=== PATIENT | male | born 1945 | race Caucasian/White ===

== ENCOUNTER 2017-01-11 22:50 | Inpatient (IN) | payer OTHER ==
[~2017-01-11] VITALS: Ht 182.9 cm; Wt 79.5 kg
[2017-01-11] MEDS ORDERED: ONDANSETRON 4 MG INJ IV STA (23:06)
[2017-01-11] MEDS ORDERED: MECLIZINE 12.5 MG TAB PO ONE (23:30)
[2017-01-11 23:43] LABS: ADD SCAN DIFF NO
[2017-01-11 23:47] LABS: BASOPHILS % 0.2 % (0.0-2.0); HEMATOCRIT 37.1 % (42.0-52.0); HEMOGLOBIN 12.5 g/dl (14.0-18.0); LYMPHOCYTES # 1.1 10^3/ul (0.8-2.9); LYMPHOCYTES % 13.5 % (15.0-51.0); MEAN CORPUSCULAR HEMOGLOBIN 30.5 pg (29.0-33.0); MEAN CORPUSCULAR HGB CONC 33.7 g/dl (32.0-37.0); MEAN CORPUSCULAR VOLUME 90.5 fl (82.0-101.0); MEAN PLATELET VOLUME 9.6 fl (7.4-10.4); MONOCYTE # 0.5 10^3/ul (0.3-0.9); MONOCYTES % 6.1 % (0.0-11.0); NEUTROPHIL # 6.5 10^3/ul (1.6-7.5); PLATELET COUNT 228 10^3/UL (140-415); RED CELL DISTRIBUTION WIDTH 13.1 % (11.5-14.5); WHITE BLOOD COUNT 8.1 10^3/ul (4.8-10.8)
[2017-01-11 23:53] LABS: POTASSIUM 3.4 mmol/L (3.5-5.1)
[2017-01-11 23:54] LABS: INR 0.94; PROTIME 12.6 Sec (12.2-14.2)
[2017-01-11 23:55] LABS: CREATININE 1.49 mg/dl (0.61-1.24); PARTIAL THROMBOPLASTIN TIME 26.6 Sec (25.0-35.0)
[2017-01-11 23:56] LABS: CALCIUM 9.5 mg/dl (8.4-10.2)
[2017-01-12] VITALS (37 sets, daily range): BP systolic 138–181; BP diastolic 76–137; PULSE 55–99; RESP 8–23; Ht 182.9 cm; Wt 79.5 kg
--- NOTE | 2017-01-12 00:04 | RADRPT ---
PROCEDURE: Portable chest x-ray. CLINICAL INDICATION: Dizziness, headache. TECHNIQUE: Portable AP view of the chest. COMPARISON: None. FINDINGS: There is elevation of the right hemidiaphragm. No pulmonary edema or conolidation is identified. T he cardiac silhouette is magnified. No pleural effusion is seen. There is no pneumothorax. IMPRESSION: 1. No evidence of acute cardiopulmonary disease. RPTAT: HTAR .Osei Stroud MD, MD Date Time Electronically viewed and signed by .Osei Stroud MD, MD on 01/12/2017 00:04 .R/
[2017-01-12 00:08] LABS: TROPONIN-I 0.044 ng/ml (0.00-0.12)
--- NOTE | 2017-01-12 00:28 | RADRPT ---
PROCEDURE: CT Head without. CLINICAL INDICATION: Dizziness. TECHNIQUE: The study was performed utilizing a multi-slice, multidetector CT scanner. Direct spira l 1 mm axial sections were obtained through the head without the use of intravenous contrast materia l. 1 or more of the following dose reduction techniques were utilized: Automated exposure control, adjustment of the mA and/or kV according to patient's size, iterative reconstruction technique. Co macario and sagittal as well as maximal intensity projection reformations were obtained. The images we re reviewed on a PACS workstation. RADIATION DOSE: CTDIvol: 45.0 mGyDLP: 720.2 mGy-cm COMPARISON: No prior studies are available for comparison. FINDINGS: There is no extra-axial fluid collection, mass lesion or midline shift. There is a subtle hyperdens ity in the left centrum semiovale white matter measuring 6 x 4 mm (axial series image 21). There is severe prominence of the lateral and third ventricles, which is slightly proportion to the mild pro minence of the cerebral sulci. There is mild anterior bowing of the chiasmatic recess. There is no significant funneling of the cerebral aqueduct. There is moderate to severe prominence of the temp oral horns. There is moderate patchy and confluent periventricular and subcortical white matter hyp odensity. There is moderate arteriosclerotic calcification of the bilateral vertebral and parasella r internal carotid arteries. The barreto-white matter differentiation is preserved. The basal cistern s are patent. The midline structures are intact. The orbits, calvarium and extracranial soft tissu es are normal in appearance. The visualized paranasal sinuses, mastoid air cells and middle ear cavities are normally aerated. IMPRESSION: 1. Severe prominence of the lateral and third ventricles which is out of proportion to the mild per ipheral cerebral volume loss. There is superimposed moderate patchy and confluent periventricular w helga matter hypodensity. These findings are nonspecific, however concern is raised for possible nor mal pressure hydrocephalus versus nonobstructive hydrocephalous. Alternatively, this may be related to central worse than peripheral cerebral volume loss with associated moderate chronic microangiopa thic changes. 2. Focal 6 x 4 mm hyperdensity in the left periventricular/centrum semiovale white matter, which is nonspecific. This may be related to early focus of hemorrhage with other etiologies including vasc ular malformation not excluded. Short interval follow-up is recommended. 3. extra-axial fluid collection or mass lesion. The above findings were discussed with Patient's physician Dipak Nunez by telephone on 2016 12:25:17 AM. RPTAT: HGAS .John Anderson MD, MD Date Time Electronically viewed and signed by .John Anderson MD, MD on 01/12/2017 00:27 .S/
[2017-01-12] MEDS ORDERED: LORAZEPAM 1 MG TAB PO ONE (02:00)
--- NOTE | 2017-01-12 03:33 | HP ---
Date/Time of Note Date/Time of Note DATE: 01/12/17 TIME: 03:33 Assessment/Plan VTE Prophylaxis VTE Prophylaxis Intervention: anti-embolic stocking VTE Contraindication Reason: bleeding (Bleeding Risk. Possible Subarachnoid Bleed.) Assessment/Plan Assessment/Plan 1) Abnormal CT Brain - probable subarachnoid bleed, possible Normal Pressure Hydrocephalus vs Nonobstructing Hydrocephalus vs ? - Admit to ICU - NPO - No Anticoagulation - CONSULT: Neurosurgery: Dr. Gallegos already notified by ER Physician HPI/ROS Admit Date/Time Admit Date/Time 01/12/17 0443 Hx of Present Illness CC: Headache and Dizziness HPI: Patient was brought to the ER via EMS for severe headache and dizziness. By the time I see him, he is comfortable and sleeping after being medicated. Per ER Physician, Neurosurgeon, Dr. Gallegos has already been notified and will consult on patient tomorrow. ROS General: Admits: Denies: Fever, Chills Eyes: Admits: Denies: Blurry Vision, Double Vision HENT: Admits: Denies: Ear Pain/Pressure, Runny/Stuffy Nose, Sore Throat Cardiovascular: Admits: Denies: Chest Pain, Palpitations, Leg Swelling Pulmonary: Admits: Denies: Cough, Shortness of Breath Gastrointestinal: Admits: Denies: Abdominal Pain, Nausea, Vomiting Urogenital: Admits: Denies: Burning with Urination, Urinary Frequency Musculoskeletal: Admits: Denies: Joint Pain, Joint Swelling, Muscle Pain Neurological: Admits: Headache (almost completely gone), Dizziness (resolved) Denies: Numbness, Tingling, Shooting Pains Integumentary: Admits: Denies: Rash, Itch PMH/Family/Social Social History Smoking Status: Never smoker Exam/Review of Systems Vital Signs Vitals Vital Signs Date Time Temp Pulse Resp B/P Pulse Ox O2 Delivery O2 Flow Rate FiO2 01/12/17 00:36 73 22 118/81 99 01/11/17 23:05 98.0 Exam Exam General: Sleepin comfortable, easily aroused, in no acute distress. Eyes: Sclera White, EOMI HENT: Normocephalic/Atraumatic, External Ears/Nose Normal, Moist Mucus Membranes Neck: Supple, Trachea Midline Cardiovascular: Normal Rate, Normal Rhythm, Normal S1 and S2, No Murmur, No Extra Sounds Pulmonary: Clear to Auscultation Bilaterally, Normal Respiratory Effort, No Rales, Rhonchi or Wheezes Gastrointestinal: Normoactive Bowel Sounds, Soft, Non-Tender/Non-Distended, No Hepatosplenomegaly Appreciated, No Pulsatile Masses Urogenital: Deferred Musculoskeletal: Normal Muscle Bulk and Tone Neurological: CN II - XII Grossly Intact, Non-Focal, Speech Normal Integumentary: Normal Moisture and Temperature, Good Turgor, No Jaundice, No Rash Lymphatic: No Cervical Lymphadenopathy Psychiatric: Appropriate Mood and Affect, Good Eye Contact Labs Result Diagram: 01/11/17232401/11/17 232 Procedures Procedures RADIOLOGY: PROCEDURE: CT Head without. CLINICAL INDICATION: Dizziness. TECHNIQUE: The study was performed utilizing a multi-slice, multidetector CT scanner. Direct spiral 1 mm axial sections were obtained through the head without the use of intravenous contrast material. 1 or more of the following dose reduction techniques were utilized: Automated exposure control, adjustment of the mA and/or kV according to patient's size, iterative reconstruction technique. Coronal and sagittal as well as maximal intensity projection reformations were obtained. The images were reviewed on a PACS workstation. RADIATION DOSE: CTDIvol: 45.0 mGy DLP: 720.2 mGy-cm COMPARISON: No prior studies are available for comparison. FINDINGS: There is no extra-axial fluid collection, mass lesion or midline shift. There is a subtle hyperdensity in the left centrum semiovale white matter measuring 6 x 4 mm (axial series image 21). There is severe prominence of the lateral and third ventricles, which is slightly proportion to the mild prominence of the cerebral sulci. There is mild anterior bowing of the chiasmatic recess. There is no significant funneling of the cerebral aqueduct. There is moderate to severe prominence of the temporal horns. There is moderate patchy and confluent periventricular and subcortical white matter hypodensity. There is moderate arteriosclerotic calcification of the bilateral vertebral and parasellar internal carotid arteries. The barreto-white matter differentiation is preserved. The basal cisterns are patent. The midline structures are intact. The orbits, calvarium and extracranial soft tissues are normal in appearance. The visualized paranasal sinuses, mastoid air cells and middle ear cavities are normally aerated. IMPRESSION: 1. Severe prominence of the lateral and third ventricles which is out of proportion to the mild peripheral cerebral volume loss. There is superimposed moderate patchy and confluent periventricular white matter hypodensity. These findings are nonspecific, however concern is raised for possible normal pressure hydrocephalus versus nonobstructive hydrocephalous. Alternatively, this may be related to central worse than peripheral cerebral volume loss with associated moderate chronic microangiopathic changes. 2. Focal 6 x 4 mm hyperdensity in the left periventricular/centrum semiovale white matter, which is nonspecific. This may be related to early focus of hemorrhage with other etiologies including vascular malformation not excluded. Short interval follow-up is recommended. 3. extra-axial fluid collection or mass lesion. PROCEDURE: Portable chest x-ray. CLINICAL INDICATION: Dizziness, headache. TECHNIQUE: Portable AP view of the chest. COMPARISON: None. FINDINGS: There is elevation of the right hemidiaphragm. No pulmonary edema or conolidation is identified. The cardiac silhouette is magnified. No pleural effusion is seen. There is no pneumothorax. IMPRESSION: 1. No evidence of acute cardiopulmonary disease. MICHELLE ROWE DO Jan 12, 2017 03:33 There is elevation of the right hemidiaphragm. No pulmonary edema or conolidation is identified. The cardiac silhouette is magnified. No pleural effusion is seen. There is no pneumothorax.
[2017-01-12] MEDS ORDERED: METOCLOPRAMIDE 10 MG INJ IV PRN (05:00)
[2017-01-12] MEDS ORDERED: ACETAMINOPHEN 650 MG SUPP PR PRN (05:00)
[2017-01-12] MEDS ORDERED: ASPI-664 PO (08:12)
[2017-01-12] MEDS ORDERED: TERA5CAP3 PO (08:13)
[2017-01-12] MEDS ORDERED: DOCU-159 PO (08:13)
[2017-01-12] MEDS ORDERED: CIPR500T4 PO (08:15)
[2017-01-12] MEDS ORDERED: BACL10TA PO (08:16)
[2017-01-12] MEDS ORDERED: DONE10TA7 PO (08:16)
[2017-01-12] MEDS ORDERED: TRAM-40 PO (08:16)
[2017-01-12] MEDS ORDERED: GLIP5TAB13 PO (08:17)
[2017-01-12] MEDS ORDERED: LISI-313 PO (08:17)
[2017-01-12] MEDS ORDERED: TAMS-14 PO (08:17)
[2017-01-12] MEDS ORDERED: OMEP20CA16 PO (08:18)
[2017-01-12] MEDS ORDERED: MULTI PO (08:18)
[2017-01-12] MEDS ORDERED: ATOR20TA38 PO (08:20)
[2017-01-12] MEDS ORDERED: CALC-68 PO (08:20)
[2017-01-12] MEDS ORDERED: LATA2.5D2 BOTH EYES (08:21)
[2017-01-12] MEDS ORDERED: HYDR-906 PO (08:22)
--- NOTE | 2017-01-12 09:07 | CONS ---
Date/Time of Note Date/Time of Note DATE: 01/12/17 TIME: 09:01 Assessment/Plan Assessment/Plan Additional Assessment/Plan 1) small hyperdensity in left parenchyma adjacent to ventricle; 2) dilated ventricles. The significance of either of these findings is difficult to determine without reference imaging. Patient states he has had cranial imaging in the past at [facility]. Although he presented with headache, this is substantially improved and I doubt that there is an acute intracranial process going on. In my opinion he would certainly be stable for repatriation to [facility]. In the interim we can get a MRI of the brain with and without contrast to better define the abnormalities seen on Ct. Consultation Date/Type/Reason Admit Date/Time Date of Consultation: Jan 12, 2017 Type of Consultation: neurological surgery Reason for Consultation intra-cererbal hemorrhage Hx of Present Illness 71 year old with crescendo severe headache (ie not sudden onset) was brought to ED by paramedics for the same. CT shows a small hyperdensity adjacent to the left frontal horn (<5mm), this could be a small focus of calcification or less likely a small hemorrhage. The ventricular system is also dilated. Social History Smoking Status: Never smoker Exam/Review of Systems Vital Signs Vitals Vital Signs Date Time Temp Pulse Resp B/P Pulse Ox O2 Delivery O2 Flow Rate FiO2 01/12/17 07:00 79 15 143/82 100 Nasal Cannula 2.0 01/11/17 23:05 98.0 Exam On neurologic examination the patient is awake and alert moving all extremities 5/5; cranial nerve exam shows equal pupils that are reactive, intact extraocular movements, TML, face=. Results Result Diagram: 01/11/179 01/11/17 232 Results 24 hrs Laboratory Tests Test 01/11/17 23:25 01/12/17 08:02 Activated Partial Thromboplast Time 26.6 Anion Gap 13 Basophils # 0.0 Basophils % 0.2 Blood Urea Nitrogen 21 H Calcium Level 9.5 Carbon Dioxide Level 27 Chloride Level 102 Creatinine 1.49 H Eosinophils # 0.0 Eosinophils % 0.0 Glucose Level 196 Hematocrit 37.1 L Hemoglobin 12.5 L INR International Normalized Ratio 0.94 Lymphocytes # 1.1 Lymphocytes % 13.5 L Mean Corpuscular Hemoglobin 30.5 Mean Corpuscular Hemoglobin Concent 33.7 Mean Corpuscular Volume 90.5 Mean Platelet Volume 9.6 Monocytes # 0.5 Monocytes % 6.1 Neutrophils # 6.5 Neutrophils % 80.0 H Nucleated Red Blood Cells # 0.0 Nucleated Red Blood Cells % 0.0 Platelet Count 228 Potassium Level 3.4 L Prothrombin Time 12.6 Prothrombin Time Ratio 1.0 Red Blood Count 4.10 L Red Cell Distribution Width 13.1 Sodium Level 139 Troponin I 0.044 White Blood Count 8.1 Bedside Glucose 102 Medications Medications Current Medications Metoclopramide HCl (Reglan) 10 mg Q6H PRN IV NAUSEA AND/OR VOMITING; Start at 05:00 Acetaminophen (Tylenol Supp) 650 mg Q4H PRN [place] PAIN LEVEL 1-3 OR FEVER; Start 01/12/17 at 05:00 Famotidine (Pepcid Iv) 20 mg Q12 IV ; Start 01/12/17 at 09:00 HUNG SAN MD Jan 12, 2017 09:07
[2017-01-12] MEDS: FAMOTIDINE 20 MG INJ IV SCH ×2 (10:19→22:27)
[2017-01-12] MEDS ORDERED: DEXTROSE 50% 50 ML SYRINGE IV PRN ×2 (13:30)
[2017-01-12] MEDS ORDERED: GLUCOSE GEL 15 GRAM TUBE PO PRN ×2 (13:30)
[2017-01-12] MEDS ORDERED: GLUCAGON 1 MG INJ IM PRN (13:30)
[2017-01-12] MEDS ORDERED: GLUCOSE GEL 15 GRAM TUBE BUCCAL PRN (13:30)
--- NOTE | 2017-01-12 14:26 | RADRPT ---
PROCEDURE: MR Brain without contrast. CLINICAL INDICATION: Neurologic deficit, subarachnoid hemorrhage TECHNIQUE: An MRI of the brain was performed on a high-resolution MR scanner utilizing the followi ng sequences: Sagittal and axial T1 weighted, axial T2 weighted, axial FLAIR, coronal GRE, and axial diffusion weighted with ADC mapping. Images were reviewed high-resolution PACS workstation. No con trast was administered. COMPARISON: Head CT yesterday FINDINGS: No definite acute parenchymal hemorrhage. No significant mass effect, or midline shift. No evidence of recent infarct. Confluent T2 / FLAIR hyperintense signal change in the cerebral white matter. Chr onic lacunar infarcts of the bilateral basal ganglia, left thalamus and right cerebellum. Foci of GRE susceptibility identified in the right parietal lobe, left frontal periventricular white matter, and left lentiform nucleus. The left frontal periventricular white matter lesion has a rou nded appearance. The ventricles enlarged but not significantly changed in size. There is relative effacement of the sulci at the vertex again seen.. Normal flow voids are visible in the proximal intracranial arteries suggesting their patency. No significant opacification of the paranasal sinuses or mastoids. IMPRESSION: No evidence of recent infarct or definite acute parenchymal hemorrhage. Foci of GRE susceptibility in the right parietal lobe, left frontal periventricular white matter, an d left lentiform nucleus are identified. The differential considerations are led by a sequela of pr ior microhemorrhage. The left periventricular white matter lesion has a rounded appearance and may a lso represent a small cavernous malformation. Similar appearance of enlarged ventricles with relative effacement of sulci at the vertex. This agai n may be due to central greater than peripheral volume loss. Alternatively in the appropriate clinic al setting, normal pressure hydrocephalus may also have this appearance. Severe chronic microvascular disease. Chronic lacunar infarcts of the bilateral basal ganglia, left thalamus and right cerebellum. RPTAT: AA .Grover Calvo MD, MD Date Time Electronically viewed and signed by .Grover Calvo MD, on 01/12/2017 14:26 .T/
[2017-01-12] MEDS ORDERED: morphine 2 MG INJ IV PRN (15:30)
[2017-01-12] MEDS ORDERED: traMADol 50 MG TAB PO PRN (16:30)
[2017-01-12] MEDS: INSULIN ASPART [NOVOLOG] 3 ML PEN SC SCH ×2 (17:35→22:22)
[2017-01-12] MEDS: LISINOPRIL 20 MG TAB PO SCH (17:47)
[2017-01-12] MEDS: METOPROLOL 25 MG TAB PO SCH ×2 (17:47→22:23)
[2017-01-12] MEDS: DONEPEZIL 10 MG TAB PO SCH (18:19)
[2017-01-12] MEDS ORDERED: SOD CHLORIDE 0.9% 1,000 ML IV SCH (18:30)
[2017-01-12] MEDS ORDERED: POTASSIUM CHLORIDE 250 ML IVPB ONE (18:30)
--- NOTE | 2017-01-12 18:45 | RADRPT ---
PROCEDURE: US carotid arteries. CLINICAL INDICATION: Dizziness. Syncope. TECHNIQUE: Multiple sonographic images of the carotid arteries and vertebral arteries were obtaine d utilizing barreto scale, duplex, and color-flow imaging. The images were reviewed on a PACS workstati on. COMPARISON: No prior studies are available for comparison. FINDINGS: Evaluation of the right carotid bifurcation region reveals mild atherosclerotic disease. Evaluation of the left carotid bifurcation region reveals mild atherosclerotic disease. There is antegrade flow within the vertebral arteries bilaterally. RIGHT CAROTID MEASUREMENTS: Common Carotid Sqobez15 (cm/sec) Internal Carotid Artery 34 (cm/sec) External Carotid Artery 52 (cm/sec) Vertebral Artery 39 (cm/sec) Internal Carotid/Common Carotid0.5 LEFT CAROTID MEASUREMENTS: Common Carotid Dzwibu84 (cm/sec) Internal Carotid Artery 50 (cm/sec) External Carotid Artery 54 (cm/sec) Vertebral Artery 35 (cm/sec) Internal Carotid/Common Carotid0.9 Validated velocity measurements with angiographic measurements. Velocity criteria are extrapolated f rom diameter data as defined by the Society of Radiologists in Ultrasound Consensus Conference. Radi ology 2003; 229;340-346. This study does indirectly reference the measurement of the distal ICA pascual meter as the denominator for stenosis measurement. IMPRESSION: 1. Less than 50% stenosis bilaterally in the internal carotid arteries. 2. Normal antegrade flow in the vertebral arteries bilaterally. RPTAT: QQ SRU Consensus Conference Criteria for the Diagnosis of Carotid Artery Stenosis* Degree of Stenosis, % ICA PSV, cm/sec Plaque Estimate, % ICA/CCA PSV Ratio Normal <125 None <2.0 <50 <125 <50 <2.0 50 69 125-230 >50 2.0-4.0 >70 but less than near occlusion >230 >50 <4.0 Near occlusion High, low, or undetectable Visible Variable Total occlusion Undetectable Visible, no detectable lumen Not applicable *Cartoid artery stenosis: barreto-scale and Doppler US diagnosis. Society of Radiologists in Ultrasound Consensus Conference. Radiology 2003; 229: 340-346 .Gianni Avendano MD, Date Time Electronically viewed and signed by .Gianni Avendano MD, on 01/12/2017 18:44 .R/
--- NOTE | 2017-01-12 19:17 | DS ---
DATE OF ADMISSION: 01/12/2017 DATE OF DISCHARGE: 01/12/2017 PRESENTING COMPLAINT: Dizziness. HISTORY OF PRESENTING COMPLAINT: Mr. Benavidez is a 71-year-old male who had presented to the emergency room at about 11:00 on the night of 01/11/2017 with complaints of dizziness. He had a past medical history of: 1. Diabetes, 2. Dyslipidemia. 3. Glaucoma. 4. High blood pressure. 5. Benign prostatic hypertrophy. 6. Chronic back pain. 7. History of stroke in the past with residual right-sided weakness. A CT scan of the brain was done and it showed that he had severe prominence of the lateral and third ventricles, which is out of proportion to the mild peripheral cerebral volume loss with superimpose d moderate patchy and confluent periventricular white matter hypointensity. These findings were tho ught to been no specific, but concern was raised for possible normal pressure hydrocephalus versus a nonobstructive hydrocephalus. There was also a focal 6 x 4 mm hyperdensity in the left periventric ular white matter that was also thought to be nonspecific. It was concerning for a probable early f ocus of hemorrhage, but other etiologies were not excluded. Based on this, the patient was admitted for further intervention and workup. He was reviewed by neurosurgery, Dr. Abhinav Gallegos and Dr. Gallegos determined that the significance of the findings on the CT were difficult to determine witho ut reference imaging. The patient had ____ that he had a cranial imaging in the past at [facility], but his reports that his headache was also improved. Hence, Dr. Gallegos made his recommendations doubt ing that there was any acute intracranial process going on and determined that patient was stable to transfer to [facility] for further interventions while there. Hence, this transfer summary. At this [facility], the patient remains alert and oriented, in no distress, comfortable, ambulant, and communicativ e. TRANSFER PHYSICAL EXAMINATION: VITAL SIGNS: Temperature 98.2, pulse 84, respirations 21, blood pressure 162/104, saturations 99% o n oxygen via nasal cannula at 2 liters a minute. GENERAL: Alert and oriented. HEENT: Head is normocephalic without evidence of trauma. Pupils are equal and reactive. Posterior pharynx is clear of exudate. NECK: Supple. CHEST: Clear. CARDIOVASCULAR: S1 and S2. No murmurs. ABDOMEN: Soft, nontender, nondistended. EXTREMITIES: There is no lower extremity edema. NEUROLOGIC: There are no focal neurologic deficits. LABORATORY DATA: Also reviewed and they were concerning for a potassium of 3.4, a creatinine of 1.4 9. Troponin was negative. But he did have a normocytic normochromic anemia. Coag profile was also unremarkable. Imaging findings have been summarized above. FINAL DIAGNOSES: 1. Acute dizziness/headache, improved. 2. High blood pressure, still with suboptimal control. 3. 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 4. Chronic infarcts of the bilateral basal ganglia, left thalamus, and right cerebellum. 5. 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 6. Diabetes mellitus with good control in-house. 7. Acute renal insufficiency, rule out chronic kidney disease. 8. Hypokalemia. 9. Normocytic, normochromic anemia. DISPOSITION: At this time, the patient has been cleared by neurosurgery for transfer to [facility]. If the patient does not transfer today, we will replete electrolytes, recommend gentle diuresis, also obtain neurology consultation, and commence speech and physical therapy once cleared by neurosurgery . In the interim, we will resume his home blood pressure medication and titrate as indicated, resum e all other home medications and adjust therapy as recommended. Screening labs will include hemoglo bin A1c, TSH. We will also complete an ACS rule out and get a 2D echo as well as carotid Dopplers. This has been discussed with the patient in detail. Questions have been answered. Evaluation time so far has been more than 45 minutes. Dictated By: LUDWIG KHAN MD BA/JENNIFER Conf#: [id number] DID#: [id number] CC: MICHELLE ROWE MD;*End*
[2017-01-12 19:35] LABS: TROPONIN-I 0.032 ng/ml (0.00-0.12)
[2017-01-12 19:45] LABS: CK-MB 1.6 ng/ml (0.0-2.4)
[2017-01-12] MEDS ORDERED: TERAZOSIN 5 MG CAP PO SCH (21:00)
[2017-01-12] MEDS ORDERED: TAMSULOSIN (SR) 0.4 MG CAP PO SCH (21:00)
[2017-01-12] MEDS ORDERED: ATORVASTATIN 20 MG TAB PO SCH (21:00)
[2017-01-12] MEDS ORDERED: LATANOPROST 0.005% 2.5 ML OPH BOTH EYES SCH (21:00)
[2017-01-12] MEDS: CALCIUM/VITAMIN D (500/200) TAB PO SCH (22:23)
[2017-01-13] VITALS (28 sets, daily range): BP systolic 105–199; BP diastolic 68–141; PULSE 54–100; RESP 10–27
[2017-01-13 01:34] LABS: TROPONIN-I 0.03 ng/ml (0.00-0.12)
[2017-01-13 01:44] LABS: CK-MB 1.84 ng/ml (0.0-2.4)
[2017-01-13] MEDS ORDERED: ACCU-CHEK XX SCH (02:00)
[2017-01-13] MEDS ORDERED: LORAZEPAM 1 MG TAB PO ONE (03:00)
[2017-01-13 05:08] LABS: CREATININE 1.31 mg/dl (0.61-1.24)
[2017-01-13 05:09] LABS: CHOL/HDL RATIO 3.2 RATIO; IRON 37 ug/dl (35-150)
[2017-01-13 05:18] LABS: TOTAL IRON BINDING CAPACITY 238 ug/dl (241-421)
[2017-01-13 06:07] LABS: THYROID STIMULATING HORMONE 0.724 MIU/L (0.465-4.680)
[2017-01-13] MEDS: INSULIN ASPART [NOVOLOG] 3 ML PEN SC SCH ×3 (07:35→18:24)
[2017-01-13] MEDS: PANTOPRAZOLE (EC) 40 MG TAB PO SCH ×2 (07:59→09:46)
[2017-01-13] MEDS: METOPROLOL 25 MG TAB PO SCH (09:00)
[2017-01-13] MEDS ORDERED: MULTIVITAMINS THERAPEUTIC TAB PO SCH (09:00)
[2017-01-13] MEDS ORDERED: ASPIRIN (EC) 81 MG TAB PO SCH (09:00)
[2017-01-13] MEDS ORDERED: DOCUSATE SODIUM 100 MG CAP PO SCH (09:00)
[2017-01-13] MEDS: CALCIUM/VITAMIN D (500/200) TAB PO SCH (09:46)
[2017-01-13] MEDS: LISINOPRIL 20 MG TAB PO SCH (09:46)
[2017-01-13] MEDS: DONEPEZIL 10 MG TAB PO SCH (09:46)
[2017-01-13] MEDS: FAMOTIDINE 20 MG INJ IV SCH (09:49)
[2017-01-13] MEDS ORDERED: LORAZEPAM 2 MG INJ IV ONE (15:30)
[2017-01-13] MEDS ORDERED: hydrALAzine 20 MG INJ IV ONE (15:30)
[2017-01-13] MEDS ORDERED: FAMO-18 PO (17:09)
[2017-01-13] MEDS ORDERED: METO-448 PO (17:09)
--- NOTE | 2017-01-13 17:15 | RADRPT ---
Echocardiogram Report Patient Name: SANDRA HANDLEY Gender: Male Date: 1945 Study Date: 13-Jan-2017 Manager Business Management: Betty Dominguez RDCS Location: 112 Ref. Physician: LUDWIG KHAN Quality: Good Procedures: Transthoracic echocardiogram with complete 2D, M-Mode, and doppler examination. Indications: Cerebrovascular Accident. Dizziness. 2D/M Mode Doppler Measurement Value Normal Ranges Measurement Value Normal Ranges LVIDd 2D 4.9 3.5 - 5.6 cm AV Peak Thony 2.0 m/sec LVIDs 2D 2.8 2.1 - 4.1 cm AV Peak PG 15.3 mmHg LVPWd 2D 1.1 0.6 - 1.1 cm AI Peak PG 95.2 mmHg IVSd 2D 1.1 0.6 - 1.1 cm AI Peak Thony 4.9 m/sec AoR Diam 2D 2.8 2.0 - 3.7 cm AI PHT 805.5 msec EDV 2D 111.6 cm3 LVOT Peak Thony 1.1 m/sec ESV 2D 23.1 cm3 LVOT Peak PG 5.0 mmHg LA Dimen 2D 3.5 2.3 - 4.0 cm MV E Peak Thony 0.6 m/sec MV A Peak Thony 1.3 m/sec MV E/A 0.4 MV Decel Time 184 msec MV Decel [place] 3 MV E/A 0.4 Findings Left Ventricle: Normal left ventricular systolic function. Normal left ventricular cavity size. Normal left ventricular wall thickness. Ejection fraction is visually estimated at 60 %. Tissue Doppler/Mitral Doppler indices are consistent with impaired relaxation (Stage I diastolic dysfunction). Right Ventricle: Normal right ventricular size. Normal right ventricular systolic function. Left Atrium: The left atrium is normal in size. Right Atrium: The right atrium is normal in size. Mitral Valve: Mitral valve leaflets appear mildly thickened. Mild mitral annular calcification. Trace mitral regurgitation. Aortic Valve: No hemodynamically significant aortic stenosis by doppler. Aortic cusps appear mildly calcified. Mild to moderate aortic valve regurgitation. Tricuspid Valve: Normal appearance and function of the tricuspid valve with trace physiologic regurgitation. Pulmonic Valve: Normal pulmonic valve appearance. Pericardium: Normal pericardium with no significant pericardial effusion. Aorta: Normal aortic root. IVC: Normal size and normal respiratory collapse consistent with normal right atrial pressure. Conclusions 1.Normal left ventricular systolic function. Normal left ventricular cavity size. Normal left ventricular wall thickness. Ejection fraction is visually estimated at 60 %. Tissue Doppler/Mitral Doppler indices are consistent with impaired relaxation (Stage I diastolic dysfunction). 2.Normal right ventricular size. Normal right ventricular systolic function. 3.The left atrium is normal in size. 4.The right atrium is normal in size. 5.No hemodynamically significant aortic stenosis by doppler. Aortic cusps appear mildly calcified. Mild to moderate aortic valve regurgitation. 6.No significant valvular stenosis or regurgitation seen of remaining visualized valves. 7.Normal pericardium with no significant pericardial effusion. Electronically Signed By: Wellington Narvaez 13-Jan-2017 17:15:19 -0700 Patient Name: SANDRA HANDLEY Study Date: 13-Jan-2017 [id number]
[2017-01-13] MEDS ORDERED: SOD FERRIC GLUC COMPLX 125 MG in SOD CHLORIDE 0.9% 100 ML IVPB SCH (17:30)
[2017-01-13] MEDS ORDERED: QUETIAPINE 25 MG TAB PO SCH (21:00)
--- NOTE | 2017-01-14 01:34 | DS ---
DATE OF ADMISSION: 01/12/2017 DATE OF DISCHARGE: 01/13/2017 ADDENDUM Patient had an episode of aggression overnight per nursing report, because he wanted to leave the [facility] and he was not allowed to. Other than that, at this time, he is calm. We discussed the need for continued hospitalization until he can be discharged safely. He denies any complaints. All he requests is to leave the hospital. OBJECTIVE: VITAL SIGNS: Temperature 98.2, pulse is 66, respirations 17, blood pressure 151/90, saturations 99% on room air. GENERAL: The patient was lying comfortably in bed. He was calm. He was in no distress. HEENT: Head is normocephalic. Pupils are equal and reactive. Mucous membranes were moist. Front Desk Person ior pharynx was clear of exudate. NECK: Supple. CHEST: Clear. CARDIOVASCULAR: S1 and S2. ABDOMEN: Soft, nontender. EXTREMITIES: He has a chronic right-sided hemiparesis. NEUROLOGIC: The patient is oriented to self. He was able to tell me he was in the hospital, but he was able to tell me he was in a medical facility, but he could not remember the actual word for hos rachael. Simply when asked about the date, he seemed to know the month, but was not able to recall the year without assistance. He did know who the president was and he did know I was some kind of medi fausto professional. His speech is clear and oriented; however, I cannot help but note that there are some memory deficits with the patient. LABORATORY DATA: Today, his blood glucose levels have been stable. Hemoglobin A1c came back at 6.2 . Iron profile came back with a low normal iron level and his creatinine is improved to 1.3. Lipid profile was unremarkable. He has had 3 negative cardiac enzymes. IMAGING: Carotid Doppler study showed a less than 50% stenosis bilaterally in the internal carotid artery. The brain MRI has been reviewed with the neurosurgeon today and to show concern for p robable mild normal pressure hydrocephalus, chronic microvascular disease, and chronic lacunar infar cts in the bilateral basal ganglia, left thalamus and right cerebral. ASSESSMENT: Remains the following: A 71-year-old male who was originally brought in for headache and dizziness that have now resolved, now managed as follows: 1. Acute encephalopathy with concern for probable normal pressure hydrocephalus. 2. High blood pressure with improved control. 3. 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 4. Probable cavernous malformation on MRI. 5. 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 6. Reported diabetes mellitus with A1c of 6.2. 7. Acute renal insufficiency, rule out chronic kidney disease, improving. 8. Hypokalemia, resolved. 9. Normocytic normochromic anemia. PLAN: The patient remained stable for transfer. Unfortunately at this time, I do not believe that the patient is stable for discharge by himself to his own home. If there is a family member who can sampler pickup the patient, discharge him to their care. Patient also has not been formally evaluat ed by neurology or physical therapy yet. I would like to see what their recommendations are and kelvin e it into consideration for discharge planning. Hence, the patient to be transferred to the medical surgical floor at this time or transferred to [facility] and further interventions will depe nd on his clinical course. Dictated By: LUDWIG KHAN MD, BA/JENNIFER Conf#: [id number] DID#: [id number]
== END 2017-01-13 18:55 | disposition short-term general hospital (02) | DRG 71 ==
LOC: E/R 22:50 → ICU 01-12 04:50
PROVIDERS: ADMIT Family Medicine; ATTEND Family Medicine
DX: G93.40 Encephalopathy, unspecified (principal); G91.2 (Idiopathic) normal pressure hydrocephalus; I69.959 Hemiplegia and hemiparesis following unspecified cerebrovascular disease affecting unspecified side; I10 Essential (primary) hypertension; D64.9 Anemia, unspecified; E11.9 Type 2 diabetes mellitus without complications; N28.9 Disorder of kidney and ureter, unspecified; F01.50 Vascular dementia, unspecified severity, without behavioral disturbance, psychotic disturbance, mood disturbance, and anxiety
CPT/HCPCS: 70450; 70551; 71010; 80048; 80061; 82550; 82553; 82962; 83036; 83540; 83735; 84443; 84484; 85025; 85610; 85730; 87081; 93005; 93306; 93880; J0360; J1815; J2060; J2270; J2405; J2916; J3480; J7030

== ENCOUNTER 2017-01-14 22:41 | Emergency (ER) | payer OTHER ==
[~2017-01-14] VITALS: Ht 175.3 cm; Wt 66.5 kg
[~2017-01-14 22:41] MED LIST: ASPI-664 PO; ATOR20TA38 PO; BACL10TA PO; CALC-68 PO; DOCU-159 PO; DONE10TA7 PO; FAMO-18 PO; HYDR-906 PO; LATA2.5D2 BOTH EYES; LISI-313 PO; METO-448 PO; MULTI PO; OMEP20CA16 PO; TAMS-14 PO; TERA5CAP3 PO; TRAM-40 PO
[2017-01-14 22:51] VITALS: Ht 175.3 cm; Wt 66.5 kg
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
[2017-01-14 23:15] VITALS: TEMP 98.5
[2017-01-14] MEDS ORDERED: ONDANSETRON 4 MG INJ IV STA (23:24)
[2017-01-14] MEDS ORDERED: HYDROCODONE/APAP (10/325) TAB PO ONE (23:30)
[2017-01-14 23:41] LABS: ADD SCAN DIFF NO
[2017-01-14 23:48] LABS: BASOPHILS % 0.4 % (0.0-2.0); HEMATOCRIT 42.4 % (42.0-52.0); HEMOGLOBIN 13.9 g/dl (14.0-18.0); LYMPHOCYTES # 1.3 10^3/ul (0.8-2.9); LYMPHOCYTES % 18.4 % (15.0-51.0); MEAN CORPUSCULAR HEMOGLOBIN 29.6 pg (29.0-33.0); MEAN CORPUSCULAR HGB CONC 32.8 g/dl (32.0-37.0); MEAN CORPUSCULAR VOLUME 90.2 fl (82.0-101.0); MEAN PLATELET VOLUME 9.7 fl (7.4-10.4); MONOCYTE # 0.4 10^3/ul (0.3-0.9); MONOCYTES % 5.7 % (0.0-11.0); NEUTROPHIL # 5.2 10^3/ul (1.6-7.5); NEUTROPHILS % 75.2 % (39.0-77.0); PLATELET COUNT 239 10^3/UL (140-415); WHITE BLOOD COUNT 6.9 10^3/ul (4.8-10.8)
[2017-01-14 23:55] LABS: POTASSIUM 3.4 mmol/L (3.5-5.1)
[2017-01-14 23:57] LABS: CREATININE 1.64 mg/dl (0.61-1.24); INR 0.91; PROTIME 12.3 Sec (12.2-14.2)
[2017-01-14 23:58] LABS: CALCIUM 9.3 mg/dl (8.4-10.2); PARTIAL THROMBOPLASTIN TIME 25.5 Sec (25.0-35.0)
[2017-01-15] MEDS ORDERED: SOD CHLORIDE 0.9% 500 ML IV ONE (00:30)
--- NOTE | 2017-01-15 00:44 | RADRPT ---
PROCEDURE: CT Brain without contrast. CLINICAL INDICATION: Patient experiencing a headache. TECHNIQUE: A multiplanar CT of the brain was performed on a CT scanner utilizing axial imaging fro m the skull base through the vertex without IV contrast. The CTDIvol is 45.01 mGy and the DLP is 72 0.23 mGycm. One or more of the following dose reduction techniques were utilized: Automated exposu re control, adjustment of the mA and/or kV according to patient size, use of iterative reconstructio n technique. COMPARISON: None FINDINGS: No evidence of intracranial hemorrhage or abnormal extra-axial fluid collection. Marked ventriculomegaly disproportionate to the greater sulcal prominence with extensive confluent p eriventricular low attenuation most compatible with sequelae of chronic microvascular ischemic injur y. Focal calcification along the left lateral ventricle anteriorly without change compared to previ ous study which may represent sequelae prior hemorrhage or vascular malformation or cavernoma. Sequ elae of infection is considered less likely.. Moderate cerebral volume loss. Atherosclerotic calcification of the vertebral arteries and cavernous internal carotid arteries. The basal cisterns, posterior fossa contents, brainstem, craniocervical junction, orbits, pituitary axis, paranasal sinuses, mastoid air cells, and calvarium are unremarkable. IMPRESSION: 1. Stable severe ventriculomegaly disproportionate to the degree of sulcal prominence with the cheko ventricular white matter hypo density. Although these findings may reflect sequelae of extensive ch ronic microvascular ischemic injury, communicating hydrocephalus (NPH) cannot be excluded. 2. No interval change in periventricular focal hyper density likely representing calcification. As previously described, tiny vascular malformation cannot be excluded. 3. Moderate cerebral volume loss. RPTAT:AAJJ Physician Sharmila Date Time Electronically viewed and signed by Physician Sharmila on 01/15/2017 00:44 DIONTE/
[2017-01-15 00:57] VITALS: BP 125/81; PULSE 72; RESP 20
[2017-01-15] MEDS ORDERED: HYDR-906 PO (01:01)
== END 2017-01-15 01:45 | disposition home or self-care (01) ==
LOC: E/R 22:41
DX: R51 Headache (principal); E11.65 Type 2 diabetes mellitus with hyperglycemia; E87.6 Hypokalemia; Z79.82 Long term (current) use of aspirin; Z79.84 Long term (current) use of oral hypoglycemic drugs
CPT/HCPCS: 36415; 70450; 80048; 85025; 85610; 85730; 93005; 96374; 99285; J2405; J7040